=== PATIENT | male | born 1950 | race Caucasian/White ===

== ENCOUNTER → 2018-10-26 | Outpatient (CLI) | payer MEDICARE, BC ==
--- NOTE | 2018-11-09 11:30 | REP ---
Bilateral lower extremity arterial Doppler ultrasound: Repeat dictation. History: Rule out arterial occlusion. Unilateral right lower extremity arterial bypass graft. The patient reports a right fem-pop bypass graft present times 3 years. Sonographic findings: Ankle brachial indices are normal measured at 1.0 on the right and 0.9 on the left. On the right the right sided bypass graft from the femoral artery to the tibioperoneal trunk is patent. Peak systolic flow velocity in the proximal bypass graft is 47 cm/sec, in that in the mid graft is 57 cm/sec and at the distal graft anastomoses, PSV is 50 cm/sec. Multifocal plaquing is observed in the calf vessels on the right. The hoopa right distal SFA and popliteal are occluded. On the left there is significant plaquing in the superficial femoral artery with moderate stenosis. There is severe stenosis in the proximal posterior tibial artery. The common femoral artery shows significant plaquing as well. Velocity chart right lower extremity arteries: CF A 117 cm/S Profunda 84 Proximal SFA 84 Mid SFA 32 Distal SFA occluded Popliteal occluded Proximal AT A 56 Tibioperoneal trunk - see distal graft velocity above Proximal COMPOSITION STONE APPLICATOR 26 Distal COMPOSITION STONE APPLICATOR 47 Distal AT A 77 Velocity chart left lower extremity arteries: CF A 98 cm/S Profunda 99 Proximal SFA 84 Mid SFA 59/98 Distal SFA 55/36 Popliteal 78 Proximal AT A 53 Tibioperoneal trunk 44 Proximal COMPOSITION STONE APPLICATOR 235 Distal COMPOSITION STONE APPLICATOR not seen Distal AT A 55 Electronically Signed by Azar Germain MD 11/09/2018 11:21 A
== END ==
LOC: M RAD 07:37
PROVIDERS: ATTEND Surgery Vascular Surgery
DX: Z95.828 Presence of other vascular implants and grafts (principal); I72.4 Aneurysm of artery of lower extremity

== ENCOUNTER → 2018-12-26 | Outpatient (CLI) | payer MEDICARE, BC ==
[~2018-12-26] MED LIST: ISOVUE-370 76% 100ML VIAL (Q9967) As Ordered ONE
--- NOTE | 2018-12-26 18:11 | REP ---
CT ANGIOGRAM ABDOMINAL AORTA, AND BILATERAL LOWER EXTREMITIES: CT angiogram was performed of abdominal aorta and bilateral lower extremities following the intravenous administration of 100 mL of Isovue-370. Sagittal and coronal reconstruction images are performed as well as 3D MIP reconstruction images. Abdominal aorta is mildly ectatic. Maximum Ap diameter is approximately 2.5 cm. There is moderate scattered atherosclerotic calcification. There is slight narrowing at the origin of the celiac, superior and inferior mesenteric arteries. There is mild narrowing at the origin of the right renal artery and mild to moderate narrowing at the origin of the main left renal artery. There is mild to moderate narrowing at the origin of the right common iliac artery with mild diffuse narrowing of the right distal common iliac, external iliac and common femoral arteries. There is fairly high grade stenosis of the right internal iliac artery with a large amount of calcific plaque at the proximal aspect of that artery. Right profunda demonstrates mild narrowing and is patent. Proximal right superficial artery demonstrates mild narrowing. There is a right bypass graft with a widely patent anastomosis with the proximal right superficial femoral artery which becomes occluded just distal to that anastomosis. The bypass graft is patent, coursing in the medial thigh fairly superficially. It is patent to at least the distal third of the thigh. Below that level opacification is very faint. I can not confirm its patency at the apparent anastomosis with the tibioperoneal trunk. I can not confirm patency of the calf arteries as there is not opacification of these arteries with IV contrast. This may be due to slow flow through the bypass graft. Note is made of dilatation of the right popliteal artery, 2.1 x 2.3 cm. On the left there is mild to moderate narrowing at the origin of the common iliac artery with mild diffuse narrowing of the remaining common iliac artery. There is mild narrowing and ectasia of the proximal left internal iliac artery. There is mild diffuse narrowing of the external iliac and common femoral artery. Left profunda is mildly narrowed. Left superficial femoral artery demonstrates moderate focal narrowing at its origin. There is moderate diffuse narrowing of the distal left superficial femora artery in the distal third. Distal end of the superficial femoral artery becomes ectatic as it exits the adductor canal with dilatation of the proximal popliteal artery and moderate partially calcified plaquing internally. The caliber at this point of the proximal aspect of the left popliteal artery is 2.1 x 2.5 cm. The more distal aspect of the left popliteal artery demonstrates variable ectasia up to 1.5 cm in AP dimension. Left popliteal artery is patent but only faintly opacified up to its distal aspect at about the level of the knee. I can not confirm arterial patency below that level as is insufficient arterial opacification possibly due to slow flow. The liver demonstrates diffuse fatty infiltration. The patient has had a prior cholecystectomy. Multiple tiny calcified granulomas are seen of the spleen. There is a small left inguinal hernia containing fat. The visualized lung bases demonstrate mild fibrotic change. Calcified subcarinal lymph nodes are present. There are degenerative changes of the spine. 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 Moderate narrowing at the origin of both common iliac arteries. There is a right bypass graft in the medial thigh extending from the proximal aspect of the right superficial femoral artery to the right tibioperoneal trunk. The bypass graft does appear to be patent, with faint opacification distally at about the level of the knee. However the patency distal to that can not be confirmed due to apparent slow flow and no evidence of arterial opacification distal to the knee. On the left there is moderate narrowing at the origin of the left superficial femoral artery and also diffusely of the distal third of the superficial femoral artery. There are bilateral popliteal artery aneurysms as discussed above. Left popliteal artery is faintly opacified at the level of the left knee joint but there is no arterial opacification distal to that, again likely due to slow flow. Electronically Signed by Carlton Washington MD 12/28/2018 07:59 A
== END ==
LOC: M RAD 10:35
PROVIDERS: ATTEND Surgery
DX: I72.4 Aneurysm of artery of lower extremity (principal)
CPT/HCPCS: 75635; Q9967

== ENCOUNTER → 2021-03-15 | Outpatient (CLI) | payer MEDICARE, BC | LOC: M LABSMTC 09:14 | PROVIDERS: ATTEND Surgery Vascular Surgery | DX: Z20.822 Contact with and (suspected) exposure to COVID-19 (principal) ==